=== PATIENT | female | born 1970 | race African-American/Black ===

== ENCOUNTER 2016-05-14 12:47 | Emergency (ER) | payer OTHER ==
[~2016-05-14] VITALS: Ht 175.3 cm; Wt 54.4 kg
[2016-05-14 13:43] VITALS: BP 116/60
[2016-05-14] MEDS ORDERED: NAPR500T3 PO (13:56)
--- NOTE | 2016-05-14 13:56 | PHYS DOC ---
Past Medical History Past Medical History: Arthritis Past Surgical History: Other Additional Past Surgical Histo: cyst removal Alcohol Use: None Drug Use: None Adult General Chief Complaint Chief Complaint: LOWER EXT PAIN HPI HPI Patient is a 46 year old female presents emergency department stating that she is having right knee pain and discomfort. She denies any injuries or traumas. She does state however she has a history of osteoarthritis to her knee in which she sees [facility] for. She states she normally gets hydrocodone 7.5. She states that she is currently ran out. She states that she was supposed to have had an appointment earlier in May although she was unable to make the appointment. She states that now she is unable to get in until July. Patient denies any numbness or tingling down to the lower extremity. She is able to ambulate with a good steady gait. Review of Systems Review of Systems Constitutional: Denies fever or chills [] Eyes: Denies change in visual acuity, redness, or eye pain [] HENT: Denies nasal congestion or sore throat [] Respiratory: Denies cough or shortness of breath [] Cardiovascular: No additional information not addressed in HPI [] GI: Denies abdominal pain, nausea, vomiting, bloody stools or diarrhea [] : Denies dysuria or hematuria [] Musculoskeletal: Denies back pain. C/o right knee pain Integument: Denies rash or skin lesions [] Neurologic: Denies headache, focal weakness or sensory changes [] Allergies Allergies Allergies Coded Allergies Type Severity Reaction Last Updated Verified No Known Drug Allergies 05/14/16 No Physical Exam Physical Exam Constitutional: Well developed, well nourished, no acute distress, non-toxic appearance. [] HENT: Normocephalic, atraumatic, bilateral external ears normal, oropharynx moist, no oral exudates, nose normal. [] Eyes: PERRLA, EOMI, conjunctiva normal, no discharge. [] Neck: Normal range of motion, no tenderness, supple, no stridor. [] Cardiovascular:Heart rate regular rhythm, no murmur [] Lungs & Thorax: Bilateral breath sounds clear to auscultation [] Skin: Warm, dry, no erythema, no rash. [] Back: No tenderness Extremities: Right knee tenderness, no cyanosis, no clubbing, ROM intact, no edema. Peripheral pulses 2+ cap refill brisk less than 2 seconds. Patient with good steady gait noted. Good sensation noted. Negative Lachmans, negative Conroy , negative valgus. Neurologic: Alert and oriented X 3, normal motor function, normal sensory function, no focal deficits noted. [] Psychologic: Affect normal, judgement normal, mood normal. [] Current Patient Data Vital Signs Vital Signs Date Time Temp Pulse Resp B/P Pulse Ox O2 Delivery O2 Flow Rate FiO2 05/14/16 13:43 98.9 75 18 98 Room Air 98.9 EKG EKG [] Radiology/Procedures Radiology/Procedures [] Course & Med Decision Making Course & Med Decision Making Pertinent Labs and Imaging studies reviewed. (See chart for details) Patient will be provided with hydrocodone here in the emergency department. She was instructed that we will provide her with a prescription for naproxen in which she can take one tablet twice a day. Patient states that this does not help with the pain and discomfort. She is requesting hydrocodone 7.5. Explained to patient we would provide her with hydrocodone here in the emergency department sent home with a prescription as mentioned above. Patient agrees with discharge instructions treatment regimens and follow-up recommendations reviewed since symptoms to return back to emergency department as been provided. [] Dragon Disclaimer Dragon Disclaimer This electronic medical record was generated, in whole or in part, using a voice recognition dictation system. Departure Departure Impression: Primary Impression: Right knee pain Disposition: 01 HOME, SELF-CARE Condition: STABLE Referrals: NO PCP (PCP) Patient Instructions: Knee Pain, [id number] Additional Instructions: Home to rest Medication as prescribed This medication with food. Stop taking few develop an upset stomach. Drink plenty of fluids Follow-up with your primary care physician within the next week. Return back to emergency percent symptoms of become worse. Scripts Naproxen 500 Mg Tablet1 Tab PO BID #60 TAB Ref 1 Prov:TAMMY CRAMER NP 05/14/16 TAMMY CRAMER NP May 14, 2016 13:56
[2016-05-14] MEDS ORDERED: HYDROCODONE/APAP 5/325MG TABLET. PO ONE (14:00)
== END 2016-05-14 14:03 | disposition home or self-care (01) ==
LOC: ER 12:47
DX: M25.561 Pain in right knee (principal); M19.90 Unspecified osteoarthritis, unspecified site
CPT/HCPCS: 99283